=== PATIENT | male | born 1935 | race Caucasian/White ===

== ENCOUNTER 2017-06-20 18:22 | Observation (INO) ==
[2017-06-20] MEDS ORDERED: Ipratropium/Albuterol Neb 3 ML IH ONE (18:36)
--- NOTE | 2017-06-20 18:58 | Emergency Department Note ---
Disposition Clinical Impression: Hypoxia, Generalized weakness Acute bronchitis Qualifiers: Bronchitis organism: unspecified organism Qualified Code(s): J20.9 - Acute bronchitis, unspecified Fall Qualifiers: Encounter type: initial encounter Qualified Code(s): W19.XXXA - Unspecified fall, initial encounter Fever Qualifiers: Fever type: unspecified Qualified Code(s): R50.9 - Fever, unspecified Disposition: Admitted As Inpatient Condition: Fair Time of Disposition: 22:53 General Adult HPI - General Chief complaint: ED Fall Stated complaint: falls Time Seen by Provider: 06/20/17 18:23 Source: family, EMS Mode of arrival: EMS Limitations: no limitations Nursing Notes Reviewed: Yes Vital Signs Reviewed: Yes - History of Present Illness HPI Narrative: 81-year-old male complains of cough, congestion, and generalized weakness that started 2 days ago. Patient states his cough is productive with white sputum, denies chest pain but admits to fever 101 which was treated with Tylenol 2 doses today. Patient's white count bedside states that family members noticed that he had difficulty walking and felt weak in his legs but did not fall to the ground. Patient was assisted to a sitting position. Patient and both confirm that patient did not hit his head. Patient has no history of clotting disorders, to include DVT or PE in the past and patient does not complain of any leg pain today. Patient is not on any medications other than eyedrops for his glaucoma. Patient has no medical history for cardiac events or lung disorders. Pain Scale: 4 - Related Data Allergies Allergy/AdvReac Type Severity Reaction Status Date / Time egg Allergy Nausea Verified 07/26/16 03:57 All systems ED: reviewed and negative except as stated. Review of Systems: As Per HPI Constitutional: Reports: fever, weakness ENT ED: Reports: congestion Respiratory: Reports: cough, dyspnea Past Medical History - Past Medical History Attestation: Yes The following information was validated with the patient. Source: patient, nursing notes reviewed Medical history: Reports: glaucoma Psychiatric history: Reports: no psych history - Social History Smoking Status: Never smoker Smokeless Tobacco Status: No Alcohol use: Reports: none Drug use: Reports: none Physical Exam Vital Signs Temperature 101.9 F H 06/20/17 18:24 Pulse Rate 71 06/20/17 18:24 Respiratory Rate 18 06/20/17 18:24 Blood Pressure 165/82 06/20/17 18:24 O2 Sat by Pulse Oximetry 100 06/20/17 18:24 Temperature 101.9 F H 06/20/17 18:24 Pulse Rate 71 06/20/17 18:24 Respiratory Rate 18 06/20/17 18:24 Blood Pressure 165/82 06/20/17 18:24 O2 Sat by Pulse Oximetry 100 06/20/17 18:24 Oxygen Delivery Oxygen Delivery Nasal Cannula CONSTITUTIONAL: Sick but [id number] and well-nourished; A&O X 3, in no apparent distress. Patient is on nasal cannula 2 L. HEAD: Normocephalic; atraumatic EYES: PERRL, no scleral icterus NOSE: The nose is normal in appearance without rhinorrhea NECK: No JVD or distended neck veins RESP: Normal chest excursion with respiration; with bilateral expiratory wheezing, and rales right lower lung field. CARD: Regular rhythm, without murmurs, rub or gallop ABD: Non-distended; non-tender, soft, without rigidity, rebound or guarding,no pulsatile mass CHEST: No pain with palpation SKIN: Normal for age and race; warm and dry without diaphoresis ; no apparent lesions, with exception of bilateral feet which have signs of venous insufficiency. EXTREMITIES: Pulses are 2 plus and equal times 4 extremities, no peripheral edema or calf muscle pain - General Limitations: no limitations General appearance: alert Course - Reevaluation(s) Reevaluation #1: Increase patient's 2 supplementation via nasal cannula to 4 L because of hypoxia with O2 saturations Time: 19:45 Reevaluation #2: CXR negative for pneumonia Time: 19:49 Reevaluation #3: Flu swab was negative for influenza. Patient is receiving DuoNeb therapy which is making his cough more but is nonproductive. Time: 20:07 - Consultations Consultation #1: Dr. Rendon the Hospitalist as accepted patient for admission to a telemetry bed for evaluation Time: 22:05 Vital Signs Temperature 101.9 F H 06/20/17 18:24 Pulse Rate 71 18 18:24 Respiratory Rate 18 06/20/17 18:24 Blood Pressure 165/82 18 18:24 O2 Sat by Pulse Oximetry 100 06/20/17 18:24 Temperature 98.9 F 06/20/17 22:27 Pulse Rate 75 06/20/17 22:27 Respiratory Rate 16 06/20/17 22:27 Blood Pressure 142/70 06/20/17 22:27 O2 Sat by Pulse Oximetry 94 06/20/17 22:27 Oxygen Delivery Oxygen Delivery Nasal Cannula Medical Decision Making - [facility] Narrative Medical decision making narrative: Patient cough congestion symptoms of fever and chills concerning for possible pneumonia. Exam reflects bilateral expiratory wheezes and basilar rales right lower lung area. Patient does not have chest pain but given patient's age will assess for any cardiac conditions to include ACS/ID, ischemia as well as keeping an open mind for PE. Patient is low risk for PE under Wells criteria. Patient will also be assessed for possible UTI to not miss any sources of possible infection leading to patient's current symptoms. Chest x-ray was negative for signs of pneumonia, and patient's lab work was unremarkable for elevations of white blood cell count, troponin, or electrolyte abnormalities that were clinically significant. No UTI on urinalysis. Given a negative chest x-ray, negative urinalysis for UTI, and negative flu swab , patient was sent down for CTA of the chest to assess for possible PE or pneumonia without chest x-ray is unable to fish bait picker to identify a source of patient's acutely new hypoxia and requirement on supplemental oxygen to maintain O2 saturations in the 90s. Patient CTA was negative for PE but positive for bronchial wall thickening in the left lower lobe consistent with bronchitis. Current plan is for patient to be admitted to hospital for further treatment due to hypoxia, weakness, shortness of breath, frequent falls and intermittent confusion. Patient was started on 500 mg of azithromycin IV as well as ceftriaxone 1 g IV for suspected pulmonary infection given patient's hypoxia and fever. Tylenol 1 g was given for patient's fever. Patient understands and agrees to treatment plan for admission for continuation of treatment and care to get patient back to his baseline. Dr. Rendon the Hospitalist as accepted patient for admission to a telemetry bed for evaluation. Patient is currently in stable condition. - Medical Records Medical records reviewed: Yes I reviewed the patient's medical records. - Lab Data Lab results reviewed: Yes I reviewed the patient's lab results. Result diagrams: 06/20/17 18:54 06/20/17 18:54 Lab Results 06/20/17 06/20/17 06/20/17 Range/Units 18:54 18:54 18:54 WBC 7.9 (4.3-11.1) K/mcL RBC 5.60 H (4.19-5.50) M/mcL Hgb 15.9 (12.9-16.9) g/dL Hct 50.0 (37.5-50.1) % MCV 89.3 (83.0-100.0) fL MCH 28.4 (28.0-33.3) pg MCHC 31.8 (31.6-35.5) g/dL RDW 13.5 (11.5-14.5) % Plt Count 161 (140-400) K/mcL MPV 9.8 (9.4-12.4) fL Immature Gran % 0.4 (0-4) % Seg Neutrophils % 73.9 % Lymphocytes % 9.9 % Monocytes % 15.1 % Eosinophils % 0.4 % Basophils % 0.3 % Neutrophils # 5.8 (1.6-8.9) K/mcL Lymphocytes # 0.8 (0.6-4.6) K/mcL Monocytes # 1.2 (0.0-1.3) K/mcL Eosinophils # 0.0 (0.0-0.6) K/mcL Basophils # 0.0 (0.0-0.2) K/mcL Sodium 133 L (136-145) mEq/L Potassium 3.9 (3.5-5.1) mEq/L Chloride 99 (98-107) mEq/L Carbon Dioxide 27 (23-29) mEq/L BUN 16 (8-23) mg/dL Creatinine 0.96 (0.70-1.30) mg/dL Est GFR ( Amer) > 60 (> 60) Est GFR (Non-Af Amer) > 60 (> 60) BUN/Creatinine Ratio 17 (6-26) Glucose 146 H (70-105) mg/dL Calculated Osmolality 280 (280-300) Lactic Acid (0.5-2.2) mmol/L Calcium 9.0 (8.6-10.3) mg/dL Troponin I < 0.03 (< 0.04) ng/mL Urine Color Dark Yellow (Yellow) Urine Clarity Cloudy A (Clear) Urine pH 5.5 (5.0-8.0) pH Units Ur Specific [place] > 1.030 H (1.010-1.025) Urine Protein 100 H (Neg-Trace) mg/dL Urine Glucose (UA) Normal (Normal) mg/dL Urine Ketones Negative (Negative) mg/dL Urine Blood Small H (Negative) Urine Nitrite Negative (Negative) Urine Bilirubin Negative (Negative) Urine Urobilinogen Normal (Normal) mg/dL Ur Leukocyte Esterase Negative (Negative) Urine Microscopic RBC 0-3 (0-3) per hpf Urine Microscopic WBC 3-5 H (0-3) per hpf Ur Squamous Epith Cells Many H (None-Few) per lpf Calcium Oxalate Crystal Present Urine Bacteria None Seen (None-Few) per hpf Hyaline Casts Few (None-Few) per lpf 06/20/17 Range/Units 18:54 WBC (4.3-11.1) K/mcL RBC (4.19-5.50) M/mcL Hgb (12.9-16.9) g/dL Hct (37.5-50.1) % MCV (83.0-100.0) fL MCH (28.0-33.3) pg MCHC (31.6-35.5) g/dL RDW (11.5-14.5) % Plt Count (140-400) K/mcL MPV (9.4-12.4) fL Immature Gran % (0-4) % Seg Neutrophils % % Lymphocytes % % Monocytes % % Eosinophils % % Basophils % % Neutrophils # (1.6-8.9) K/mcL Lymphocytes # (0.6-4.6) K/mcL Monocytes # (0.0-1.3) K/mcL Eosinophils # (0.0-0.6) K/mcL Basophils # (0.0-0.2) K/mcL Sodium (136-145) mEq/L Potassium (3.5-5.1) mEq/L Chloride (98-107) mEq/L Carbon Dioxide (23-29) mEq/L BUN (8-23) mg/dL Creatinine (0.70-1.30) mg/dL Est GFR ( Amer) (> 60) Est GFR (Non-Af Amer) (> 60) BUN/Creatinine Ratio (6-26) Glucose (70-105) mg/dL Calculated Osmolality (280-300) Lactic Acid 1.6 (0.5-2.2) mmol/L Calcium (8.6-10.3) mg/dL Troponin I (< 0.04) ng/mL Urine Color (Yellow) Urine Clarity (Clear) Urine pH (5.0-8.0) pH Units Ur Specific [place] (1.010-1.025) Urine Protein (Neg-Trace) mg/dL Urine Glucose (UA) (Normal) mg/dL Urine Ketones (Negative) mg/dL Urine Blood (Negative) Urine Nitrite (Negative) Urine Bilirubin (Negative) Urine Urobilinogen (Normal) mg/dL Ur Leukocyte Esterase (Negative) Urine Microscopic RBC (0-3) per hpf Urine Microscopic WBC (0-3) per hpf Ur Squamous Epith Cells (None-Few) per lpf Calcium Oxalate Crystal Urine Bacteria (None-Few) per hpf Hyaline Casts (None-Few) per lpf - Radiology Data Radiology results reviewed: Yes I reviewed the patient's radiology results. Chest X-Ray 06/20/17 18:36 IMPRESSION: 1. Cardiomegaly. 2. Calcific atherosclerosis aorta. 3. Senescent pulmonary changes without definite acute pulmonary disease evident. D/ / Johnny Nobles / Johnny Nobles Interpreting Provider: Johnny Nobles Chest CTA 06/20/17 20:28 IMPRESSION: 1. No findings of pulmonary embolism. 2. Mild bronchial wall thickening with patchy left lower lobe bronchial secretions, suggesting bronchitis. 3. 2.7 cm hypodense nodule in the left thyroid lobe. Recommend follow-up with sonography on a nonemergent basis as below with consideration for life expectancy and comorbidities. 4. Additional incidental findings above. RECOMMENDATIONS: Managing Incidental Thyroid Nodule Detected at CT or MRI or US 1. Further evaluation by thyroid Ultrasound recommended for these incidental nodules: Patient Age 35 years or more - Nodule 1.5 cm in size or greater 3. NO further imaging is recommended in the following scenarios -No f/u imaging is recommended for ITNs not meeting the above criteria. -No US or f/u recommended for ITNs without high risk features in pts. with limited life expectancy or significant co-morbidities, unless clinically warranted. Note: These recommendations do not apply to pts. w/ increased risk for thyroid cancer or pts. with symptomatic thyroid disease. Recommendations for f/u of Incidental Thyroid Nodules (ITN) found on CT, MR, NM and Extrathyroidal US are based upon the ACR white paper and Mccrary 3-tiered system for managing ITNs: J Am Adrianne Radiol. 2014;12(2): 143-50 D/ / Jermaine Gray MD / Jermaine Gray MD Interpreting Provider: Jermaine Gray MD - EKG Data EKG #1 EKG attestation: Yes I reviewed and interpreted this EKG. EKG results narrative: EKG taken 06/20/2017 at 1828 hrs. shows A. fib at a rate of 70 bpm with no acute ST elevations or depressions in leads, cures Yamilex QT prolongation. EKG shows no change compared to previous EKG taken 01/18/2017. Attestation Statement - Attestation Attestation: I examined this patient and my medical decision-making was reviewed with the Resident Physician, Dr. Harris. I agree with the documented findings, disposition and treatment plan as described except to the extent set forth below. Patient is an 81-year-old white male who presents to the emergency department by EMS tonight accompanied by family with complaints of a 2 day history of worsening upper respiratory symptoms. Patient has been experiencing nasal congestion, coarse sounding productive cough, and gradually worsening generalized weakness. Patient presents today with fevers and chills with elevated temp on arrival, and some mild nausea associated with this. Patient denies any pulmonary history and is not normally require oxygen but is requiring supplemental nasal cannula today. Patient denies any chest pain pressure or heaviness, no palpitations, no syncope or near syncopal episodes. Patient denies any other associated symptoms and no posttussive emesis. I agree with patient's physical exam findings as documented. Patient's febrile but blood pressure has been stable. Patient's flu swab was negative he was administered Tylenol and arrival for fever IV fluids were started labs drawn and sent and chest x-ray obtained. Chest x-ray is negative for any pneumonia or obvious consolidation. Labs overall are fairly unremarkable. Urinalysis was negative for infection. Patient clinically seems to have an obvious pulmonary source especially with the associated hypoxia on room air. Patient was sent for CTA of the chest which does show a left lower lobe bronchitis. Patient was started on antibiotics to cover for community-acquired pneumonia and will be admitted for further evaluation and management.
[2017-06-20 19:11] LABS: Bilirubin,Urine Negative (Negative); Blood,Urine Small (Negative); Clarity,Urine Cloudy (Clear); Color,Urine Dark Yellow (Yellow); Glucose,Urine (UA) Normal (Normal); Ketones,Urine Negative (Negative); Leukocyte Esterase,Urine Negative (Negative); Nitrite,Urine Negative (Negative); PH,Urine 5.5 pH Units (5.0-8.0); Protein,Urine 100 mg/dL (Neg-Trace); Specific Gravity,Urine > 1.030 (1.010-1.025); Urobilinogen,Urine Normal (Normal)
[2017-06-20 19:12] LABS: Basophils % 0.3 %; Eosinophils % 0.4 %; Hemoglobin 15.9 g/dL (12.9-16.9); Immature Granulocytes % 0.4 % (0-4); Lymphocytes # 0.8 K/mcL (0.6-4.6); Lymphocytes % 9.9 %; Mean Corpuscular HGB Conc 31.8 g/dL (31.6-35.5); Mean Corpuscular Hemoglobin 28.4 pg (28.0-33.3); Mean Corpuscular Volume 89.3 fL (83.0-100.0); Mean Platelet Volume 9.8 fL (9.4-12.4); Monocytes # 1.2 K/mcL (0.0-1.3); Monocytes % 15.1 %; Neutrophils # 5.8 K/mcL (1.6-8.9); Platelet Count 161 K/mcL (140-400); Red Cell Distribution Width 13.5 % (11.5-14.5); Segmented Neutrophils % 73.9 %
[2017-06-20 19:15] LABS: Bacteria,Urine None Seen per hpf (None-Few); Hyaline Casts,Urine Few per lpf (None-Few); Squamous Epithelial Cell,Urine Many per lpf (None-Few)
[2017-06-20 19:35] LABS: BUN/Creatinine Ratio 17 (6-26); Blood Urea Nitrogen 16 mg/dL (8-23); Carbon Dioxide 27 mEq/L (23-29); Chloride 99 mEq/L (98-107); Glucose 146 mg/dL (70-105); Osmolality,Calculated 280 (280-300); Potassium 3.9 mEq/L (3.5-5.1); Sodium 133 mEq/L (136-145); eGFR For African Americans > 60 (> 60); eGFR For Non-African Americans > 60 (> 60)
[2017-06-20 19:36] LABS: Troponin I < 0.03 ng/mL (< 0.04)
[2017-06-20 19:38] LABS: Calcium Oxalate Crystals,Urine Present
[2017-06-20 19:39] LABS: RBC,Urine 0-3 per hpf (0-3)
[2017-06-20] MEDS ORDERED: cefTRIAXone 1,000 MG in Water for inj. (sterile) 20 ML 10 ML IVP ONE (20:07)
[2017-06-20] MEDS ORDERED: Azithromycin 500 MG in D5% in Water 250 ML IVPB ONE (20:07)
[2017-06-20] MEDS ORDERED: 0.9 % Sodium Chloride 1,000 ML IVC SCH (20:30)
[2017-06-21] MEDS ORDERED: Acetaminophen 325 MG TABLET PO PRN (01:21)
[2017-06-21] MEDS ORDERED: Naloxone 0.4 MG/ML INJ IVP PRN (01:21)
[2017-06-21] MEDS ORDERED: Ipratropium/Albuterol Neb 3 ML IH PRN (01:25)
[2017-06-21] MEDS ORDERED: 0.9 % Sodium Chloride 1,000 ML IVC SCH (01:26)
--- NOTE | 2017-06-21 02:36 | Internal Med History&Physical ---
Date of Encounter: 06/21/17 Time of Encounter: 01:00 Assessment and Plan (1) Community acquired pneumonia Current visit: Yes Status: Acute Patient has a cough with yellowish sputum. Hypoxia on patient who is not requiring oxygen at home. CTA shows left lower lobe increased secretion. Clinically consider early community-acquired pneumonia. - We will treat patient with azithromycin and Rocephin - Continue oxygen supportive treatment - DuoNeb nebulizer treatment Qualifiers: Laterality: left Lung location: lower lobe of lung Qualified Code(s): J18.1 - Lobar pneumonia, unspecified organism (2) Thyroid nodule Current visit: Yes Status: Acute Incidental finding by CT chest. Will order US thyroid and TSH. (3) A-fib Current visit: Yes Status: Acute EKG shows A. fib. His previous EKG on 07/26/16 already shows A. fib. Heart rate is well controlled. Patient is not on any anticoagulation. - Add aspirin 81 mg by mouth daily - Consul cardiology in a.m. for further management Qualifiers: Atrial fibrillation type: chronic Qualified Code(s): I48.2 - Chronic atrial fibrillation (4) DVT prophylaxis Current visit: Yes Status: Acute Heparin subcutaneously (5) Glaucoma Current visit: Yes Status: Acute Continue home medications Qualifiers: Glaucoma type: unspecified Laterality: bilateral Qualified Code(s): H40.9 - Unspecified glaucoma (6) Acute bronchitis Current visit: Yes Status: Acute Treat patient with antibiotic and bronchodilator. Continue oxygen supportive treatment Qualifiers: Bronchitis organism: unspecified organism Qualified Code(s): J20.9 - Acute bronchitis, unspecified (7) Hypoxia Current visit: Yes Status: Acute Continue oxygen supportive treatment. Treated underlying disease Internal Medicine - H&P: HPI Chief complaint: Cough and difficulty breathing Admitted From: Home Plans for Post Hospital Care: Home History of present illness: Mr. Morocho is a 81 year old male with history of glaucoma, otherwise not taking any other medication, presented to ER for difficulty breathing and cough for 3 days. Patient denies fever. Patient has yellowish sputum. Patient denies chest pain, nausea, or vomiting. In emergency room, patient was found hypoxia need 4L oxygen to maintain oxygen saturation. Flu test negative. Chest x-ray unremarkable. Further CTA shows bronchitis. Patient was admitted for acute bronchitis and hypoxia. Past Med Surg Social Fam HX - Past Medical History Medical history: atrial fibrillation, glaucoma Psychiatric history: no psych history - Social History Smoking Status: Never smoker Smokeless Tobacco Status: No Alcohol use: none Drug use: none - Family History Daughter Name: eva Age: 52 Hx Family Cardiac Disorders: No Hx Family Respiratory Disorders: No Hx Family Cancer: No Hx Family GI Disorders: No Hx Family Genitourinary Disorders: No Hx Family Endocrine Disorder: No Hx Family Musculoskeletal Disorders: No Hx Family Neuromuscular Disorders: No Hx Family Neurologic Disorders: No Hx Family HEENT Disorders: No Hx Family Autoimmune Disorders: No Hx Family Reproductive Disorders: No Hx Family Psychosocial Disorders: No Hx Family Medical Disorders: No Internal Medicine - H&P: Meds Fluorometholone [Fml] 1 drop LEFT EYE BID 06/21/17 [History] Lumigan 1 drop BOTH EYES HS 06/21/17 [History] Simbrinza 1%-0.2% Eye Drops 1 drop BOTH EYES BID 06/21/17 [History] Timolol Maleate 0.5% 1 drop LEFT EYE BID 06/21/17 [History] 3 Allergy/AdvReac Type Severity Reaction Status Date / Time egg Allergy Nausea Verified 07/26/16 03:57 All Systems PM: A 10-system review of systems was performed and is negative for pertinent findings except as documented above in the HPI. - Constitutional Vitals: Temp Pulse Resp BP Pulse Ox 99.1 F 80 16 131/79 92 06/20/17 23:34 06/20/17 23:34 06/20/17 23:34 06/20/17 23:34 06/20/17 23:34 General appearance: Present: A&O X 3, no acute distress, answers questions appropriately - Head Head exam: Present: atraumatic, normocephalic - Eye Eye exam: Present: PERRL, conjuntiva pink, sclera anicteric Pupils: Present: PERRL - Neck Neck exam general surgery: Present: supple, trachea midline. Absent: lymphadenopathy - Respiratory Respiratory exam: Present: CTAB. Absent: accessory muscle use, rales, rhonchi, wheezes Additional comments: Coarse breath sound b/l - Cardiovascular Cardiovascular exam: Present: irregular rhythm, +S1, +S2. Absent: diastolic murmur, gallop, rubs, systolic murmur - GI/Abdominal GI/Abdominal exam: Present: normal bowel sounds, soft, no peritoneal signs. Absent: distended, tenderness - Extremities Exam Extremities exam: Present: warm, radial pulses palpable and symmetrical. Absent : calf tenderness, cyanotic, pedal edema - Neurological Exam Neurological exam: Present: CN II-XII intact, oriented X3, no focal deficits. Absent: pronater drift, facial droop, speech deficit - Skin Skin exam: Present: dry, intact Internal Med - H&P Results - Labs CBC & Chem 7: 06/20/17 18:54 06/20/17 18:54
[2017-06-21] MEDS: Ipratropium/Albuterol Neb 3 ML IH SCH ×4 (03:28→22:27)
[2017-06-21 04:20] LABS: Basophils % 0.1 %; Hematocrit 44.3 % (37.5-50.1); Immature Granulocytes % 0.2 % (0-4); Lymphocytes # 1.4 K/mcL (0.6-4.6); Lymphocytes % 15.8 %; Mean Corpuscular HGB Conc 32.3 g/dL (31.6-35.5); Mean Corpuscular Hemoglobin 28.8 pg (28.0-33.3); Mean Corpuscular Volume 89.1 fL (83.0-100.0); Mean Platelet Volume 9.8 fL (9.4-12.4); Monocytes # 0.8 K/mcL (0.0-1.3); Neutrophils # 6.7 K/mcL (1.6-8.9); Platelet Count 151 K/mcL (140-400); Red Blood Count 4.97 M/mcL (4.19-5.50); Red Cell Distribution Width 13.7 % (11.5-14.5); Segmented Neutrophils % 74.9 %
[2017-06-21 04:23] LABS: Hemoglobin 14.3 g/dL (12.9-16.9)
[2017-06-21 04:35] LABS: BUN/Creatinine Ratio 15 (6-26); Blood Urea Nitrogen 13 mg/dL (8-23); Calcium 8.1 mg/dL (8.6-10.3); Carbon Dioxide 28 mEq/L (23-29); Chloride 99 mEq/L (98-107); Glucose 135 mg/dL (70-105); Magnesium 1.9 mg/dL (1.6-2.6); Osmolality,Calculated 284 (280-300); Potassium 3.8 mEq/L (3.5-5.1); Sodium 136 mEq/L (136-145); eGFR For African Americans > 60 (> 60); eGFR For Non-African Americans > 60 (> 60)
[2017-06-21] MEDS: *HR* Heparin 5,000 UNIT/ML VIAL SQ SCH ×2 (06:05→18:35)
[2017-06-21] MEDS: Aspirin Enteric Coated 81 MG Tablet PO SCH (08:07)
[2017-06-21] MEDS: SIMBRINZA OP SCH ×2 (08:08→20:51)
[2017-06-21] MEDS: EYE OP SCH ×2 (08:08→20:51)
[2017-06-21] MEDS: Fluorometholone OPTH 5 ML BOTTLE LEFT EYE SCH ×2 (08:24→21:02)
--- NOTE | 2017-06-21 08:51 | Cardiology Consult Note ---
Date of Encounter: 06/21/17 Time of Encounter: 08:50 Assessment and Plan (1) Community acquired pneumonia Current Visit: Yes Status: Acute Currently being treated for community acquired pneumonia with antibiotics and duonebs Qualifiers: Laterality: left Lung location: lower lobe of lung Qualified Code(s): J18.1 - Lobar pneumonia, unspecified organism (2) A-fib Current Visit: Yes Status: Acute Chronic a.fib not on anticoagulation EKG demonstrated A.fib stable HR of 72 nuclear stress test 03/2016 that was negative for ischemia and infarct Echo 04/2015 LVEF 60-65%, mildly enlarged left atrial size, no valve dysfunction. CHADSVASC- 3 (age, A.fib) He denies chest pain, palpitations, syncope, dizziness. He is a never smoker, no cardiac family hx, no history of UT or stroke. -Patient denied wanting to be started on xarelto or any other anticoagulant medication. He only take aspirin 81mg. The risks of cardioembolic events such as stroke were explained to him and he stated a clear understanding. He was seen by o/p and at that time refused AC. Cardiology will sign off at this time. Qualifiers: Atrial fibrillation type: chronic Qualified Code(s): I48.2 - Chronic atrial fibrillation (3) Acute bronchitis Current Visit: Yes Status: Acute Currently being treated for acute bronchitis with antibiotics Qualifiers: Bronchitis organism: unspecified organism Qualified Code(s): J20.9 - Acute bronchitis, unspecified (4) Glaucoma Current Visit: Yes Status: Acute history of stable glaucoma taking medication eye drops Qualifiers: Glaucoma type: unspecified Laterality: bilateral Qualified Code(s): H40.9 - Unspecified glaucoma Discussion w patient/family: The assessment and plan as outlined above was discussed with the patient and/or family members who expressed understanding and agreement. All questions were answered. Thank you for involving us in the care of your patient. Please call with any questions. History of Present Illness Consult date: 06/21/17 Requesting physician: Dion Rendon Consult reason: A.fib, optomize treatment Chief complaint: cough, difficulty breathing History of present illness: Mr. Morocho is a 81 year old male with PMH glaucoma, a.fib who presented to [facility] complaining of cough and difficulty breathing for 3 days. He reported increased weakness. He denies chest pain, palpitations, dizziness, syncope. He is currently being treated for acute bronchitis and early community acquired pneumonia. He reported he has been told years ago he has a.fib but does not take anything for it. He only takes medication eye drops for his glaucoma and aspirin 81mg. He had a nuclear stress test 03/2016 that was negative for ischemia and infarct. This test was for pre-op for knee replacement. Upon review of past records he has seen Dr. Salmon in the past whom he refused to take anticoagulation for A.fib. Echo 04/2015 LVEF 60-65%, mildly enlarged left atrial size, no valve dysfunction. He is a never smoker, no cardiac family hx, no history of UT or stroke. Past Med Surg Social Fam HX - Past Medical History Medical history: atrial fibrillation, glaucoma Psychiatric history: no psych history - Social History Smoking Status: Never smoker Smokeless Tobacco Status: No Alcohol use: none Drug use: none - Family History Daughter Name: eva Age: 52 Hx Family Cardiac Disorders: No Hx Family Respiratory Disorders: No Hx Family Cancer: No Hx Family GI Disorders: No Hx Family Genitourinary Disorders: No Hx Family Endocrine Disorder: No Hx Family Musculoskeletal Disorders: No Hx Family Neuromuscular Disorders: No Hx Family Neurologic Disorders: No Hx Family HEENT Disorders: No Hx Family Autoimmune Disorders: No Hx Family Reproductive Disorders: No Hx Family Psychosocial Disorders: No Hx Family Medical Disorders: No Medications and Allergies Aspirin [Lo-Dose Aspirin EC] 81 mg PO DAILY 06/21/17 [History] Bimatoprost [Lumigan] 1 drop LEFT EYE HS 06/21/17 [History] Brinzolamide/Brimonidine Tart [Simbrinza 1%-0.2% Eye Drops] 1 drop BOTH EYES BID 06/21/17 [History] Fluorometholone [Fml] 1 drop LEFT EYE BID 06/21/17 [History] Timolol Maleate 0.5% [Timolol Maleate 0.5%] 1 drop LEFT EYE BID 06/21/17 [ History] 3 Allergy/AdvReac Type Severity Reaction Status Date / Time egg Allergy Nausea Verified 06/21/17 09:23 All Systems Review: The remainder of the systems were reviewed and are negative - Constitutional Constitutional: chills, fever(s) - EENT Eyes: loss of vision (chronic) - Cardiovascular Cardiovascular: no chest pain at rest, no chest pain with exertion, no diaphoresis, no lightheadedness, no palpitations - Gastrointestinal Gastrointestinal: no abdominal pain, no nausea - Genitourinary Genitourinary: no dysuria - Integumentary Integumentary: no erythema - Neurological Neurological: no syncope Physical Examination Vital Signs, Last 4 Hours Temp Pulse Resp BP Pulse Ox 06/21/17 07:00 98.3 F 71 18 151/97 94 General: Conversant, No Apparent Distress HEENT: Atraumatic, Mucus Membranes Moist Neck: No JVD Cardiac: No Murmur, Other ( irregularly irregular) Lungs: Other (wheezing b/l) Neuro: Alert and responsive, No focal deficits noted Abdomen: Soft, Non-Tender Skin: No rashes noted on visualized skin Musculoskeletal: No Chest Wall Tenderness Extremities: No Edema Results 06/21/17 03:40 06/21/17 03:40 Lab Results 06/21/17 06/21/17 06/21/17 03:40 03:40 03:40 WBC 8.9 Hgb 14.3 D Hct 44.3 Plt Count 151 Sodium 136 Potassium 3.8 Chloride 99 Carbon Dioxide 28 BUN 13 Creatinine 0.85 Glucose 135 H Calcium 8.1 L Magnesium 1.9 TSH 0.239 L Consult Discharge Plan - Plan Referrals: Eber Parra Jr, MD [Primary Care Provider] -
[2017-06-21] MEDS ORDERED: Azithromycin 500 MG in D5% in Water 250 ML IVPB SCH (18:00)
[2017-06-21] MEDS ORDERED: cefTRIAXone 1,000 MG in Water for inj. (sterile) 20 ML 10 ML IVPB SCH (18:00)
--- NOTE | 2017-06-21 19:58 | Event Note ---
Date of Encounter: 06/21/17 Time of Encounter: 19:54 S: 81 y/o male admitted for CAP. On azithromycin and rocephin. Thyroid nodule incidental finding on CT chest; thyroid ultrasound pending. TSH low. Has cut on RLE between toes secondary to injury walking to bathroom today. Wound care consulted; will obtain their input as to if/how this can be stitched. Cardiology consulted for Afib (rate controlled). Declines long-term anticoagulation. O: Vitals - Gen - Awake, alert, NAD HEENT - NCAT, PERRLA, EOMI, hearing grossly intact, oropharynx benign Resp - Normal WOB, CTAB, no W/R/R CV - RRR, normal S1 and S2, no M/R/G, no BLE edema GI: Soft, NT/ND, no masses, normal bowel sounds, no HSP Skin: Warm, dry, no rashes/lesions/ulcers Psych: Normal mood and affect, no depression or anxiety A/P: 1) CAP - Azithromycin and rocephin 2) Afib - Cardiology consulted; appreciate input. Will follow recommendations. 3) Thyroid Nodule - Obtain TSH and thyroid ultrasound. 4) RLE toe wound - Wound care consulted; may need stitching
[2017-06-21] MEDS: Latanoprost 2.5 ML BOTTLE BOTH EYES SCH (20:46)
[2017-06-22] MEDS: Ipratropium/Albuterol Neb 3 ML IH SCH ×4 (03:16→22:10)
[2017-06-22] MEDS: *HR* Heparin 5,000 UNIT/ML VIAL SQ SCH ×2 (06:00→17:14)
--- NOTE | 2017-06-22 09:16 | Internal Med Progress Note ---
<Refugio Bearden - Last Filed: 06/22/17 15:16> Date of Encounter: 06/22/17 - Constitutional Vitals: Temp Pulse Resp BP Pulse Ox 98.2 F 75 18 136/78 95 06/22/17 07:00 06/22/17 14:24 06/22/17 14:24 06/22/17 14:24 06/22/17 14:24 Internal Medicine: Result - Labs CBC & Chem 7: 06/21/17 03:40 06/21/17 03:40 Consult Discharge Plan - Plan Referrals: Eber Parra Jr, MD [Primary Care Provider] - - Attending Attestation I performed an independent interview and examine this patient. I agree with the findings, assessment, and plan of Dr. Apodaca, internal medicine corporate communications intern. De- escalate antibiotics to oral. Thyroid nodule can be followed up as an outpatient. I again discussed the risk of stroke in this patient with atrial fibrillation and he is adamant he does not want anticoagulation. He prefers to be on aspirin alone. Patient otherwise is improving. All else as outlined above. <dL Apodaca - Last Filed: 06/22/17 16:05> Date of Encounter: 06/22/17 Time of Encounter: 09:14 - Assessment and plan (1) Community acquired pneumonia Current Visit: Yes Status: Acute Assessment and plan: CTA demonstrated possible left lower lobe pneumonia -Zithromax 500 mg IV every 24 hours (started 06/21; day 2) -Rocephin 1 g IV every 24 hours (started 06/21; day 2) -Robitussin/DM 10 mL by mouth every 6 hours when necessary -DuoNebs 3 mL inhaled every 4 hours when necessary -O2 via nasal cannula Qualifiers: Laterality: left Lung location: lower lobe of lung Qualified Code(s): J18.1 - Lobar pneumonia, unspecified organism (2) A-fib Current Visit: Yes Status: Acute Assessment and plan: Chronic a.fib; not on anticoagulation EKG demonstrated A.fib stable HR of 72 -Nuclear stress test 03/2016: negative for ischemia/infarct -ECHO 04/2015 LVEF 60-65%, mildly enlarged left atrial size, no valve dysfunction. -CHADSVASC- 3 (age, A.fib) -He denies chest pain, palpitations, syncope, dizziness -He is a never smoker, no cardiac family hx, no history of MD or stroke -Patient does not want to be started on xarelto or any other anticoagulant medication -Only takes aspirin 81mg Qualifiers: Atrial fibrillation type: chronic Qualified Code(s): I48.2 - Chronic atrial fibrillation (3) Thyroid nodule Current Visit: Yes Status: Acute Assessment and plan: -Incidental finding by CT chest -Will order US thyroid and TSH (4) Acute bronchitis Current Visit: Yes Status: Acute Qualifiers: Bronchitis organism: unspecified organism Qualified Code(s): J20.9 - Acute bronchitis, unspecified (5) DVT prophylaxis Current Visit: Yes Status: Acute Assessment and plan: -Heparin 5000 subcutaneous Q12 - Subjective Interval history: 81 male. History of glaucoma. Presented to the ER with difficulty breathing and cough 3 days. Productive of yellow sputum. Denied having a fever. Upon arrival, patient was hypoxic; required 4 L of oxygen to maintain O2 saturation. Flu test was negative. CTA demonstrated possible bronchitis. Temperature was elevated at 11.9. Currently on Rocephin and Zithromax. EKG demonstrated atrial fibrillation. Patient is not on anticoagulation. Cardiology was consulted. Patient opted out of receiving long-term anticoagulation. He is only on aspirin right now. Cardiology signed off. Patient was seen and examined at bedside this morning. States that he is feeling well today. Denies having any shortness of breath or cough. He has no complaints at this time. - Constitutional Vitals: Temp Pulse Resp BP Pulse Ox 98.2 F 75 18 146/99 92 06/22/17 07:00 06/22/17 07:00 06/22/17 07:00 06/22/17 07:00 06/22/17 07:00 General appearance: Present: A&O X 3, no acute distress, answers questions appropriately - Head Head exam: Present: atraumatic, normocephalic - Eye Eye exam: Present: PERRL, conjuntiva pink, sclera anicteric Pupils: Present: PERRL - Neck Neck exam general surgery: Present: supple, trachea midline. Absent: lymphadenopathy - Respiratory Respiratory exam: Present: CTAB. Absent: accessory muscle use, rales, rhonchi, wheezes - Cardiovascular Cardiovascular exam: Present: RRR, +S1, +S2. Absent: diastolic murmur, gallop, rubs, systolic murmur - GI/Abdominal GI/Abdominal exam: Present: normal bowel sounds, soft, no peritoneal signs. Absent: distended, tenderness - Extremities Exam Extremities exam: Present: warm, radial pulses palpable and symmetrical. Absent : calf tenderness, cyanotic, pedal edema - Neurological Exam Neurological exam: Present: CN II-XII intact, oriented X3, no focal deficits. Absent: pronater drift, facial droop, speech deficit - Skin Skin exam: Present: dry, intact Internal Medicine: Result - Labs CBC & Chem 7: 06/21/17 03:40 06/21/17 03:40 - Impressions Impressions Thyroid Ultrasound 06/21/17 14:00 IMPRESSION: Small tear nodule seen within the upper pole of the right lobe of the thyroid gland. Recommend ultrasound-guided biopsy. D/ / 06/21/2017 14:56:36 King Snyder MD / [facility] Interpreting Provider: King Snyder MD
[2017-06-22] MEDS: Aspirin Enteric Coated 81 MG Tablet PO SCH (10:02)
[2017-06-22] MEDS: Fluorometholone OPTH 5 ML BOTTLE LEFT EYE SCH ×2 (10:02→21:35)
[2017-06-22] MEDS: SIMBRINZA OP SCH ×2 (10:06→21:35)
[2017-06-22] MEDS: EYE OP SCH ×2 (10:06→21:35)
[2017-06-22] MEDS: Silvasorb 44.4 ML TUBE TP SCH (17:16)
[2017-06-22] MEDS: Latanoprost 2.5 ML BOTTLE BOTH EYES SCH (21:36)
--- NOTE | 2017-06-22 23:35 | Electrocardiograph Report ---
[address] [place] [address] Test Date: 2017-06-21 Pat Name: Refugio Morocho Department: 111 Room: E33 Gender: M Vp Research: ANATOLIY : 1935 Requested By: Brianna Escalona Order Number: [id number] Reading MD: Cuba Salmon DO Measurements Intervals [place] Rate: 60 P: MS: 0 QRS: -47 QRSD: 105 T: 23 QT: 389 QTc: 390 Interpretive Statements ATRIAL FIBRILLATION POSSIBLE ANTEROSEPTAL INFARCTION, AGE INDETERMINATE Electronically Signed On 06-22-2017 23:33:41 EDT by Cuba Salmon DO
--- NOTE | 2017-06-22 23:50 | Electrocardiograph Report ---
[place] [address] Test Date: 2017-06-20 Pat Name: Refugio Morocho Department: 103 Room: [facility] Gender: M Slag Wheeler: LIDIA : 1935 Requested By: Rick Harris Order Number: [id number] Reading MD: Cuba Salmon DO Measurements Intervals [place] Rate: 72 P: AR: 0 QRS: -39 QRSD: 105 T: 39 QT: 364 QTc: 389 Interpretive Statements ATRIAL FIBRILLATION Electronically Signed On 06-22-2017 23:48:58 EDT by Cuba Salmon DO
[2017-06-23] MEDS: Ipratropium/Albuterol Neb 3 ML IH SCH ×3 (03:58→15:56)
[2017-06-23] MEDS: *HR* Heparin 5,000 UNIT/ML VIAL SQ SCH (05:44)
[2017-06-23] MEDS: SIMBRINZA OP SCH (07:38)
[2017-06-23] MEDS: Fluorometholone OPTH 5 ML BOTTLE LEFT EYE SCH (07:38)
[2017-06-23] MEDS: Aspirin Enteric Coated 81 MG Tablet PO SCH (07:38)
[2017-06-23] MEDS: EYE OP SCH (07:38)
[2017-06-23] MEDS: Silvasorb 44.4 ML TUBE TP SCH (07:39)
[2017-06-23] MEDS ORDERED: levoFLOXacin 750 MG TABLET PO SCH (09:00)
--- NOTE | 2017-06-23 09:04 | Internal Med Progress Note ---
<Refugio Bearden Comfort - Last Filed: 06/23/17 12:54> Date of Encounter: 06/23/17 - Constitutional Vitals: Temp Pulse Resp BP Pulse Ox 98 F 70 18 161/97 92 06/23/17 10:39 06/23/17 10:39 06/23/17 10:58 06/23/17 10:39 06/23/17 10:58 Internal Medicine: Result - Labs CBC & Chem 7: 06/21/17 03:40 06/21/17 03:40 - Impressions Impressions Thyroid Ultrasound 06/21/17 14:00 IMPRESSION: Small tear nodule seen within the upper pole of the right lobe of the thyroid gland. Recommend ultrasound-guided biopsy. D/ / 06/21/2017 14:56:36 King Snyder MD / [facility] Interpreting Provider: King Snyder MD Consult Discharge Plan - Plan Instructions: Atrial Fibrillation (DC), Thyroid Nodules (DC), Thyroid Nodules ( GEN), Fall Prevention (DC), Pneumonia (DC) Referrals: Eber Parra Jr, MD [Primary Care Provider] - 07/05/17 11:00 am ( ) - Attending Attestation I performed an independent interview and exam of this patient. I agree with the findings, assessment, and plan of Dr. Apodaca, internal medicine media intern. My input is reflected in his note. Patient is significantly improved. We will continue with Levaquin for community acquired pneumonia. Aggressive pulmonary toilet. With regards residual fibrillation and he is on aspirin 81 mg by mouth daily. Patient has an incidental thyroid nodule which will need outpatient follow-up with a general surgeon for possible biopsy. <Ld Apodaca - Last Filed: 06/23/17 16:14> Date of Encounter: 06/23/17 Time of Encounter: 09:03 - Assessment and plan (1) Community acquired pneumonia Current Visit: Yes Status: Acute Assessment and plan: CTA demonstrated possible left lower lobe pneumonia -Levaquin 750 mg PO daily -Robitussin/DM 10 mL by mouth every 6 hours when necessary -DuoNebs 3 mL inhaled every 4 hours when necessary -O2 via nasal cannula Qualifiers: Laterality: left Lung location: lower lobe of lung Qualified Code(s): J18.1 - Lobar pneumonia, unspecified organism (2) A-fib Current Visit: Yes Status: Acute Assessment and plan: Chronic a.fib; not on anticoagulation EKG demonstrated A.fib stable HR of 72 -Nuclear stress test 03/2016: negative for ischemia/infarct -ECHO 04/2015 LVEF 60-65%, mildly enlarged left atrial size, no valve dysfunction. -CHADSVASC- 3 (age, A.fib) -He denies chest pain, palpitations, syncope, dizziness -He is a never smoker, no cardiac family hx, no history of CA or stroke -Patient does not want to be started on xarelto or any other anticoagulant medication -Only takes aspirin 81mg Qualifiers: Atrial fibrillation type: chronic Qualified Code(s): I48.2 - Chronic atrial fibrillation (3) Thyroid nodule Current Visit: Yes Status: Acute Assessment and plan: -Incidental finding by CT chest -Will order US thyroid and TSH (4) Acute bronchitis Current Visit: Yes Status: Acute Qualifiers: Bronchitis organism: unspecified organism Qualified Code(s): J20.9 - Acute bronchitis, unspecified (5) DVT prophylaxis Current Visit: Yes Status: Acute Assessment and plan: -Heparin 5000 subcutaneous Q12 - Subjective Interval history: Patient was seen and examined at bedside this morning. States that he is feeling well today. Denies having any shortness of breath or cough. He has no complaints at this time. - Constitutional Vitals: Temp Pulse Resp BP Pulse Ox 97.7 F 79 18 153/86 92 06/23/17 06:35 06/23/17 06:35 06/23/17 05:05 06/23/17 06:35 06/23/17 06:35 General appearance: Present: A&O X 3, no acute distress, answers questions appropriately - Head Head exam: Present: atraumatic, normocephalic - Eye Eye exam: Present: PERRL, conjuntiva pink, sclera anicteric Pupils: Present: PERRL - Neck Neck exam general surgery: Present: supple, trachea midline. Absent: lymphadenopathy - Respiratory Respiratory exam: Present: CTAB. Absent: accessory muscle use, rales, rhonchi, wheezes - Cardiovascular Cardiovascular exam: Present: RRR, +S1, +S2. Absent: diastolic murmur, gallop, rubs, systolic murmur - GI/Abdominal GI/Abdominal exam: Present: normal bowel sounds, soft, no peritoneal signs. Absent: distended, tenderness - Extremities Exam Extremities exam: Present: warm, radial pulses palpable and symmetrical. Absent : calf tenderness, cyanotic, pedal edema - Neurological Exam Neurological exam: Present: CN II-XII intact, oriented X3, no focal deficits. Absent: pronater drift, facial droop, speech deficit - Skin Skin exam: Present: dry, intact Internal Medicine: Result - Labs CBC & Chem 7: 06/21/17 03:40 06/21/17 03:40 - Impressions Impressions Thyroid Ultrasound 06/21/17 14:00
[2017-06-23 10:40] VITALS: BP 161/97
--- NOTE | 2017-06-23 16:13 | Discharge Summary ---
Date of Encounter: 06/23/17 Time of Encounter: 16:11 - Discharge Diagnosis (1) Community acquired pneumonia Priority: Primary Status: Acute Qualifiers: Laterality: left Lung location: lower lobe of lung Qualified Code(s): J18.1 - Lobar pneumonia, unspecified organism (2) A-fib Priority: Secondary Status: Acute Qualifiers: Atrial fibrillation type: chronic Qualified Code(s): I48.2 - Chronic atrial fibrillation (3) Thyroid nodule Priority: Secondary Status: Acute (4) Acute bronchitis Priority: Secondary Status: Acute Qualifiers: Bronchitis organism: unspecified organism Qualified Code(s): J20.9 - Acute bronchitis, unspecified (5) DVT prophylaxis Priority: Secondary Status: Acute Hospital course: Mr. Morocho is a 81 year old male who presented to the emergency department with a chief complaint of difficulty breathing and cough of 3 days' duration. Patient reported productive yellow sputum. He denied the presence of a fever. Upon arrival to the hospital, patient was hypoxic. He required 4 L of oxygen to maintain oxygen saturation. His flu test was negative. CTA demonstrated possible bronchitis. His temperature was elevated. EKG demonstrated atrial fibrillation. Patient is only on aspirin; cardiology was consulted. Patient refused long-term anticoagulation. Thyroid nodule was incidentally found on CT scan; patient will need to follow-up with this in the outpatient setting. She will complete a 7 day course of by mouth Levaquin, 750 mg daily. Patient was seen and examined on the day of discharge. He reports feeling well today. Denies having any cough, fever, sputum production, or shortness of breath. Vital signs are stable today. He has no complaints at this time. - Time Spent with Patient Total time spent providing and/or coordinating discharge services: Greater than 30 minutes (42 minutes) - Discharge Medications Home Medications: Aspirin [Lo-Dose Aspirin EC] 81 mg PO DAILY 06/21/17 [History] Bimatoprost [Lumigan] 1 drop LEFT EYE HS 06/21/17 [History] Brinzolamide/Brimonidine Tart [Simbrinza 1%-0.2% Eye Drops] 1 drop BOTH EYES BID 06/21/17 [History] Fluorometholone [Fml] 1 drop LEFT EYE BID 06/21/17 [History] Timolol Maleate 0.5% [Timolol Maleate 0.5%] 1 drop LEFT EYE BID 06/21/17 [ History] Allergies/Adverse Reactions: 3 Allergy/AdvReac Type Severity Reaction Status Date / Time egg Allergy Nausea Verified 06/21/17 09:23 Date of admission: 06/21/17 01:21 Primary care physician: Eber Parra Jr, MD Consults: 06/21/17 02:49 Consult to Cardiology [CONS] Routine Comment: Consulting Provider: Cardiology Carolann Reason for Consult: A Fib, optimize treatment Call Completed: No 06/21/17 12:41 Consult to Occupational Therapy [CONS] Routine Comment: Evaluate, develop and implement POC Reason for Consult: eval and treat Does patient have active BEDREST order?: No Is patient medically & hemodynamically stable?: Yes Consult to Physical Therapy [CONS] Routine Comment: Evaluate, develop and implement POC Reason for Consult: eval and treat Does patient have active BEDREST order?: No Is patient medically & hemodynamically stable?: Yes 06/21/17 15:56 Consult to Wound Care [CONS] Routine Reason for Consult: WOUND TO LITTLE TOE ON RIGHT FOOT. Time Notified: 15:58 Call Completed: Yes 06/22/17 17:02 Consult to Retail Key Holder [CONS] Routine Reason for SW Consult: PT recommending SNF; however patient undecided Discharging clinician: Ld Apodaca Anticipated date of discharge: 06/23/17 - Constitutional Vitals: Temp Pulse Resp BP Pulse Ox 98 F 70 16 161/97 91 06/23/17 10:39 06/23/17 10:39 06/23/17 15:56 06/23/17 10:39 06/23/17 15:56 General appearance: Present: A&O X 3, no acute distress, answers questions appropriately - Head Head exam: Present: atraumatic, normocephalic - Eye Eye exam: Present: PERRL, conjuntiva pink, sclera anicteric Pupils: Present: PERRL - Neck Neck exam general surgery: Present: supple, trachea midline. Absent: lymphadenopathy - Respiratory Respiratory exam: Present: CTAB. Absent: accessory muscle use, rales, rhonchi, wheezes - Cardiovascular Cardiovascular exam: Present: RRR, +S1, +S2. Absent: diastolic murmur, gallop, rubs, systolic murmur - GI/Abdominal GI/Abdominal exam: Present: normal bowel sounds, soft, no peritoneal signs. Absent: distended, tenderness - Extremities Exam Extremities exam: Present: warm, radial pulses palpable and symmetrical. Absent : calf tenderness, cyanotic, pedal edema - Neurological Exam Neurological exam: Present: CN II-XII intact, oriented X3, no focal deficits. Absent: pronater drift, facial droop, speech deficit - Skin Skin exam: Present: dry, intact - Patient Status Disposition: Home, Self-Care Condition: Fair Overall status at discharge: patient is progressing back to baseline - Discharge Instructions Instructions: Atrial Fibrillation (DC), Thyroid Nodules (DC), Thyroid Nodules ( GEN), Fall Prevention (DC), Pneumonia (DC) Follow Up With: Eber Parra Jr, MD [Primary Care Provider] - 07/05/17 11:00 am ( ) - Diet and Activity Activity: increase activity as tolerated Diet: advance to your usual diet
== END 2017-06-23 16:55 | disposition home or self-care (01) | DRG 195 ==
LOC: EMEROO 18:22 → 2NENU 18:22
PROVIDERS: ADMIT Internal Medicine; ATTEND Family Medicine